=== PATIENT | male | born 1995 | race Caucasian/White ===

== ENCOUNTER 2022-02-24 13:38 | Emergency (ER) | payer OTHER ==
[~2022-02-24] VITALS: Ht 193 cm; Wt 88.2 kg
[2022-02-24 16:17] LABS: HEMATOCRIT 46.9 % (42.0-52.0); HEMOGLOBIN 15.8 g/dl (13.5-17.5); MEAN CORPUSCULAR HEMOGLOBIN 29.5 pg (27.0-33.0); MEAN CORPUSCULAR HGB CONC 33.7 g/dl (32.0-36.5); MEAN CORPUSCULAR VOLUME 87.7 fl (80.0-96.0); PLATELET COUNT, AUTOMATED 246 10^3/uL (150-450); RED BLOOD COUNT 5.35 10^6/uL (4.30-6.10); WHITE BLOOD COUNT 8.2 10^3/uL (4.0-10.0)
[2022-02-24 16:41] LABS: ALBUMIN 3.8 GM/DL (3.2-5.2); ALT/SGPT 146 U/L (12-78); BILIRUBIN,DIRECT < 0.1 MG/DL (0.0-0.2); BILIRUBIN,TOTAL 0.5 MG/DL (0.2-1.0); BLOOD UREA NITROGEN 14 MG/DL (7-18); C REACTIVE PROTEIN QUANTITATIV 1.38 MG/DL (0.00-0.30); CALCIUM LEVEL 9.2 MG/DL (8.5-10.1); CARBON DIOXIDE LEVEL 30 MEQ/L (21-32); CHLORIDE LEVEL 105 MEQ/L (98-107); CREATININE FOR GFR 1.06 MG/DL (0.70-1.30); GLOMERULAR FILTRATION RATE > 60.0 (>60); GLUCOSE, FASTING 90 MG/DL (70-100); SODIUM LEVEL 140 MEQ/L (136-145); TOTAL PROTEIN 7.7 GM/DL (6.4-8.2)
[2022-02-24] MEDS ORDERED: valACYclovir HCL 500 MG TAB PO ONE (16:55)
[2022-02-24] MEDS ORDERED: VALA1TAB5 PO (17:14)
[2022-02-24 17:28] LABS: ATYPICAL LYMPH 10 % (0-5); BASOPHILS 2 % (0-1); EOSINOPHILS 2 % (0-3); LYMPHOCYTES 41 % (16-44); MONOCYTES 4 % (0-5); NEUTROPHILS 40 % (28-66)
[2022-02-24 17:29] LABS: PLATELET ESTIMATE NORMAL (NORMAL); POIKILOCYTOSIS 1+; SMUDGE CELLS 2+
[2022-02-24 17:32] LABS: ERYTHROCYTE SEDIMENTATION RATE 6 mm/hr (0-15)
[2022-02-24 17:35] VITALS: BP 135/74
[2022-02-24 17:50] LABS: MONO SCRN NEGATIVE (NEGATIVE)
[2022-03-02 00:09] LABS: HSV-1 DNA Negative (Negative); HSV-2 DNA Negative (Negative)
== END 2022-02-24 17:37 | disposition home or self-care (01) ==
LOC: M ED 13:38
DX: K13.70 Unspecified lesions of oral mucosa (principal); R50.9 Fever, unspecified